=== PATIENT | male | born 1945 | race Caucasian/White ===

== ENCOUNTER 2022-06-06 12:11 | Outpatient (CLI) | payer MEDICARE ==
[2022-06-06 14:03] LABS: #Eosinphils 0.1 10x3/uL (0.0-0.5); #Monocytes 0.3 10x3/uL (0.0-1.1); #Neutrophils 2.9 10x3/uL (1.5-8.4); %Basophils 0.8 % (0.0-2.0); %Eosinophils 2.4 % (0.0-6.0); %Lymphocytes 33.4 % (18.0-47.0); %Monocytes 5.6 % (0.0-10.0); %Neutrophils 57.4 % (40.0-75.0); Hemoglobin 13.1 g/dL (13.5-17.5); Mean Corpuscular HGB CONC 33.6 g/dL (32.0-36.0); Mean Corpuscular Hemoglobin 31.7 pg (27.0-33.0); Mean Corpuscular Volume 94.4 fl (81.2-95.1); Mean Platelet Volume 9.9 fl (7.4-10.4); Platelet Count 129 10x3/uL (150-450); Red Blood Cell (RBC) Count 4.13 10x6/uL (4.32-5.72)
[2022-06-06 14:21] LABS: Anion Gap 13 mmol/L (10-20); BUN (Urea Nitrogen) 16 mg/dL (8.4-25.7); Calc. Creatinine Clearance 0 mL/min (70-130); Carbon Dioxide 21 mmol/L (23-31); Chloride 111 mmol/L (98-107); Estimated GFR 66; Glucose 93 mg/dL (83-110); Sodium 141 mmol/L (136-145)
== END 2022-06-06 12:12 | disposition home or self-care (01) ==
LOC: LABBT 12:11
PROVIDERS: ATTEND Specialist
DX: Z01.818 Encounter for other preprocedural examination (principal); K40.90 Unilateral inguinal hernia, without obstruction or gangrene, not specified as recurrent; Z20.822 Contact with and (suspected) exposure to COVID-19
CPT/HCPCS: 80048; 85025; 87811; 93005; 93010

== ENCOUNTER 2022-06-10 05:32 | Day surgery (SDC) | payer MEDICARE ==
[2022-06-05 11:34] VITALS: BMI 26.2
[2022-06-10] MEDS ORDERED: Acetaminophen 500 MG TAB ONE (06:07)
[2022-06-10] MEDS ORDERED: Ketorolac Tromethamine 30 MG/ML VIAL ONE (06:07)
[2022-06-10] MEDS ORDERED: Bupivacaine/Epinephrine 0.25% 30 ML VIAL ONE (06:40)
[2022-06-10] MEDS ORDERED: Fentanyl 100 MCG/2 ML VIAL ONE (07:04)
[2022-06-10] MEDS ORDERED: Levofloxacin 500 mg/D5W 100 ml Premix Bag ONE (07:20)
[2022-06-10] MEDS ORDERED: fentaNYL Citrate/PF 100 MCG/2 ML SYRINGE ONE (07:20)
[2022-06-10] MEDS ORDERED: Ketamine 50 MG/ML (10ML VIAL) ONE (07:21)
[2022-06-10] MEDS ORDERED: Phenylephrine 10 MG/ML VIAL ONE (07:21)
[2022-06-10] MEDS ORDERED: Ondansetron PF 4 MG/2 ML Vial ONE (07:30)
[2022-06-10] MEDS ORDERED: ePHEDrine 50 MG/ML VIAL ONE (07:30)
[2022-06-10] MEDS ORDERED: PROPOFOL 200 MG/20 ML VIAL ONE (07:30)
[2022-06-10] MEDS ORDERED: Lidocaine 1% MPF 2 ML VIAL ONE (07:30)
[2022-06-10] MEDS ORDERED: Succinylcholine 200 MG/10 ml SYRINGE FS ONE (07:30)
[2022-06-10] MEDS ORDERED: Dexamethasone 20 MG/5 ML VIAL ONE (07:30)
[2022-06-10] MEDS ORDERED: NEOSTIGMINE 3 MG/3 ML SYR 3 MG/3 ML SYRINGE ONE (07:30)
[2022-06-10] MEDS ORDERED: Rocuronium Bromide 10 MG/ML (10ML VIAL) ONE (07:30)
[2022-06-10] MEDS ORDERED: Glycopyrrolate 0.2 MG/ML 5 ML SYRINGE ONE (07:30)
[2022-06-10] MEDS ORDERED: Bupivacaine PF 0.5% 30 ML VIAL ONE (07:56)
== END 2022-06-10 11:38 | disposition home or self-care (01) ==
LOC: SDC 05:32
PROVIDERS: ATTEND Specialist
PROC: 0YU50JZ Supplement Right Inguinal Region with Synthetic Substitute, Open Approach (ICD-10-PCS; principal; 2022-06-10)
DX: K40.20 Bilateral inguinal hernia, without obstruction or gangrene, not specified as recurrent (principal); I10 Essential (primary) hypertension; I25.10 Atherosclerotic heart disease of native coronary artery without angina pectoris; N40.0 Benign prostatic hyperplasia without lower urinary tract symptoms; Z87.891 Personal history of nicotine dependence; Z79.02 Long term (current) use of antithrombotics/antiplatelets; Z79.82 Long term (current) use of aspirin; Z79.899 Other long term (current) drug therapy; Z88.0 Allergy status to penicillin; Z88.2 Allergy status to sulfonamides; Z88.8 Allergy status to other drugs, medicaments and biological substances; Z95.5 Presence of coronary angioplasty implant and graft
CPT/HCPCS: 49505; A4306; C1781; J1100; J1885; J1956; J2370; J2405; J2704; J3010; J3490; S0020